=== PATIENT | male | born 1965 | race African-American/Black ===

== ENCOUNTER 2020-09-15 09:39 | Emergency (ER) | payer MEDICAID ==
[~2020-09-15] VITALS: Ht 167.6 cm; Wt 78.0 kg
[2020-09-15 09:50] VITALS: BP 150/99
== END 2020-09-15 10:25 | disposition home or self-care (01) ==
LOC: ER 09:39
DX: F15.10 Other stimulant abuse, uncomplicated (principal); F17.200 Nicotine dependence, unspecified, uncomplicated; I10 Essential (primary) hypertension
CPT/HCPCS: 99283